=== PATIENT | female | born 1965 | race Caucasian/White ===

== ENCOUNTER 2019-04-15 10:43 | Emergency (ER) | payer OTHER ==
--- NOTE | 2019-04-15 11:11 | ER Document Report ---
ED Medical Screen (RME) - General Mode of Arrival: Ambulatory Information source: Patient TRAVEL OUTSIDE OF THE [place] IN LAST 30 DAYS: No <ATIF RAUSCH - Last Filed: 04/15/19 11:09> <RASHEL MALHOTRA - Last Filed: 04/15/19 14:19> - General Chief Complaint: Loose Stools Stated Complaint: BLACK STOOLS,DIARRHEA,FEVER Time Seen by Provider: 04/15/19 11:04 Primary Care Provider: SCARLET FAIRCHILD MD [COMMUNITY BASED STAFF] - Follow up as needed Notes: 53-year-old female with history of frequent UTIs and IBS presents to the emergency department with severe diarrhea. Reports that she has been on antibiotics for the past 3 months for kidney issues. She reports she started having uncontrolled diarrhea since Friday. 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 Reports that the stool smells awful is dark. No history of C. difficile. Reports she had a fever over the weekend. Reports every time she eats something it goes right through her and she has to run to the restroom. I have greeted and performed a rapid initial assessment of this patient. A comprehensive ED assessment and evaluation of the patient, analysis of test results and completion of the medical decision making process will be conducted by additional ED providers. Dictation of this chart was performed using voice recognition software; therefore, there may be some unintended grammatical errors. (ATIF RAUSCH) - Related Data Allergies/Adverse Reactions: codeine [Codeine] Allergy (Verified 04/15/19 10:50) Penicillins Allergy (Verified 04/15/19 10:50) IV DYE Allergy (Uncoded 04/15/19 13:57) Past Medical History - Social History Chew tobacco use (# tins/day): No Frequency of alcohol use: None Drug Abuse: None - Past Medical History Cardiac Medical History: Reports: Hx Hypercholesterolemia Past Surgical History: Reports: Hx Hysterectomy, Hx Urinary Tract Surgery - bladder sling <ATIF RAUSCH - Last Filed: 04/15/19 11:09> Physical Exam - Vital signs Vitals: Temp Pulse Resp BP Pulse Ox 97.3 F 67 16 124/77 100 04/15/19 10:47 04/15/19 10:47 04/15/19 10:47 04/15/19 10:47 04/15/19 10:47 Course - Laboratory Result Diagrams: 04/15/19 11:30 04/15/19 11:30 <RASHEL MALHOTRA P - Last Filed: 04/15/19 14:19> - Vital Signs Vital signs: Temp Pulse Resp BP Pulse Ox 97.3 F 67 16 124/77 100 04/15/19 10:47 04/15/19 10:47 04/15/19 10:47 04/15/19 10:47 04/15/19 10:47 - Laboratory Laboratory results interpreted by me: 04/15/19 04/15/19 04/15/19 11:30 11:30 13:02 [place] % (Auto) 16.8 H AST 48 H Urine Ketones TRACE H Urine Blood SMALL H Ur Leukocyte Esterase SMALL H Doctor's Discharge <ATIF RAUSCH - Last Filed: 04/15/19 11:09> <RASHEL MALHOTRA P - Last Filed: 04/15/19 14:19> - Discharge Referrals: SCARLET FAIRCHILD MD [COMMUNITY BASED STAFF] - Follow up as needed
[2019-04-15 11:46] LABS: ABSOLUTE EOSINOPHILS # (AUTO) 0.2 10^3/uL (0.0-0.6); ABSOLUTE LYMPHOCYTES (AUTO) 1.5 10^3/uL (0.5-4.7); ABSOLUTE MONOCYTES (AUTO) 0.8 10^3/uL (0.1-1.4); ABSOLUTE NEUT (AUTO) 2.1 10^3/uL (1.7-8.2); BASOPHILS % (AUTO) 0.9 % (0-2); HEMATOCRIT 41.2 % (36.0-47.0); LYMPHOCYTES % (AUTO) 32.2 % (13-45); MEAN CORPUSCULAR HEMOGLOBIN 31.5 pg (27.0-33.4); MEAN CORPUSCULAR HGB CONC 34.1 g/dL (32.0-36.0); MEAN CORPUSCULAR VOLUME 92 fl (80-97); MONOCYTES % (AUTO) 16.8 % (3-13); PLATELET COUNT 266 10^3/uL (150-450); RED BLOOD COUNT 4.46 10^6/uL (3.72-5.28); RED CELL DISTRIBUTION WIDTH 13.9 % (11.5-14.0); SEGMENTED NEUTROPHILS % (AUTO) 46.1 % (42-78); TOTAL CELLS COUNTED % (AUTO) 100 %; WHITE BLOOD COUNT 4.5 10^3/uL (4.0-10.5)
[2019-04-15 12:09] LABS: ALBUMIN 3.9 g/dL (3.5-5.0); ALKALINE PHOSPHATASE 112 U/L (38-126); ANION GAP 9 (5-19); ASPARTATE AMINO TRANSFERASE 48 U/L (14-36); BILIRUBIN,DIRECT 0.2 mg/dL (0.0-0.4); BILIRUBIN,TOTAL 0.4 mg/dL (0.2-1.3); BLOOD UREA NITROGEN 13 mg/dL (7-20); CALCIUM 9.2 mg/dL (8.4-10.2); CARBON DIOXIDE 30 mmol/L (22-30); CHLORIDE 101 mmol/L (98-107); GLUCOSE 97 mg/dL (75-110); POTASSIUM 4.1 mmol/L (3.6-5.0); TOTAL PROTEIN 6.8 g/dL (6.3-8.2)
[2019-04-15 13:21] LABS: APPEARANCE,URINE CLEAR; BILIRUBIN,URINE NEGATIVE (NEGATIVE); COLOR,URINE YELLOW; GLUCOSE, URINE NEGATIVE (NEGATIVE); KETONES,URINE TRACE mg/dL (NEGATIVE); LEUKOCYTE ESTERASE,URINE SMALL (NEGATIVE); NITRITE,URINE NEGATIVE (NEGATIVE); PROTEIN,URINE NEGATIVE (NEGATIVE); URINE SPECIFIC GRAVITY 1.009; UROBILINOGEN,URINE NEGATIVE mg/dL (<2.0)
[2019-04-15] MEDS ORDERED: RINGERS SOLUTION,LACTATED 1,000 ML IV ONE (14:24)
--- NOTE | 2019-04-15 14:24 | ER Document Report ---
ED General - General Chief Complaint: Loose Stools Stated Complaint: BLACK STOOLS,DIARRHEA,FEVER Time Seen by Provider: 04/15/19 11:04 Primary Care Provider: SCARLET FAIRCHILD MD [COMMUNITY BASED STAFF] - Follow up as needed Mode of Arrival: Ambulatory Information source: Patient TRAVEL OUTSIDE OF THE [place] IN LAST 30 DAYS: No - HPI Patient complains to provider of: diarrhea, nasuea and vomiting Onset: Other - since Friday (3 days) Onset/Duration: Gradual Quality of pain: No pain Severity: Moderate Context: 53 year old female arrives via POV with complaints of loose watery stool and nausea with vomiting since last Friday - 6 days. She has a h/o recurrent uti and normally takes prophlactic antibiotics but stopped Friday. She also has IBS and hypercholesterolemia. Fever reportedly over the weekend. No chest pain and no sob. Associated symptoms: Fever Exacerbated by: Denies Relieved by: Denies - Related Data Allergies/Adverse Reactions: codeine [Codeine] Allergy (Verified 04/15/19 10:50) Penicillins Allergy (Verified 04/15/19 10:50) IV DYE Allergy (Uncoded 04/15/19 13:57) Past Medical History - General Information source: Patient - Social History Smoking Status: Never Smoker Chew tobacco use (# tins/day): No Frequency of alcohol use: None Drug Abuse: None Family History: Reviewed & Not Pertinent Patient has suicidal ideation: No Patient has homicidal ideation: No - Past Medical History Cardiac Medical History: Reports: Hx Hypercholesterolemia Neurological Medical History: Reports: Hx Migraine Past Surgical History: Reports: Hx Breast Surgery - breast implants, Hx Hysterectomy, Hx Urinary Tract Surgery - bladder sling Review of Systems - Review of Systems Constitutional: No symptoms reported EENT: No symptoms reported Cardiovascular: No symptoms reported Respiratory: No symptoms reported Gastrointestinal: See HPI, Diarrhea, Nausea, Vomiting Genitourinary: No symptoms reported Female Genitourinary: No symptoms reported Musculoskeletal: No symptoms reported Skin: No symptoms reported Hematologic/Lymphatic: No symptoms reported Neurological/Psychological: No symptoms reported Physical Exam - Vital signs Vitals: Temp Pulse Resp BP Pulse Ox 97.3 F 67 16 124/77 100 04/15/19 10:47 04/15/19 10:47 04/15/19 10:47 04/15/19 10:47 04/15/19 10:47 Interpretation: Normal - General General appearance: Appears well, Alert - HEENT Head: Normocephalic, Atraumatic Eyes: Normal Pupils: PERRL Pharynx: Other - dry mucus membranes - Respiratory Respiratory status: No respiratory distress Chest status: Nontender Breath sounds: Normal Chest palpation: Normal - Cardiovascular Rhythm: Regular Heart sounds: Normal auscultation Murmur: No - Abdominal Inspection: Normal Distension: No distension Bowel sounds: Normal Tenderness: Nontender Organomegaly: No organomegaly - Back Back: Normal, Nontender - Extremities General upper extremity: Normal inspection, Nontender, Normal color, Normal ROM, Normal temperature General lower extremity: Normal inspection, Nontender, Normal color, Normal ROM, Normal temperature, Normal weight bearing. No: Luis's sign - Neurological Neuro grossly intact: Yes Cognition: Normal Orientation: AAOx4 Whit Coma Scale Eye Opening: Spontaneous Whit Coma Scale Verbal: Oriented Whit Coma Scale Motor: Obeys Commands Whit Coma Scale Total: 15 Speech: Normal Motor strength normal: LUE, RUE, LLE, RLE Sensory: Normal - Psychological Associated symptoms: Normal affect, Normal mood - Skin Skin Temperature: Warm Skin Moisture: Dry Skin Color: Normal Course - Re-evaluation Re-evalutation: 04/15/19 15:58 MDM 53 year old feels a bit better after IVF. No stool here. ? IBS vs infectious colitis. She understands follow up. - Vital Signs Vital signs: Temp Pulse Resp BP Pulse Ox 97.9 F 65 18 120/67 100 04/15/19 14:49 04/15/19 14:49 04/15/19 14:49 04/15/19 14:49 04/15/19 14:49 - Laboratory Result Diagrams: 04/15/19 11:30 04/15/19 11:30 Laboratory results interpreted by me: 04/15/19 04/15/19 04/15/19 11:30 11:30 13:02 [place] % (Auto) 16.8 H AST 48 H Urine Ketones TRACE H Urine Blood SMALL H Ur Leukocyte Esterase SMALL H Discharge - Discharge Clinical Impression: Diarrhea Qualifiers: Diarrhea type: unspecified type Qualified Code(s): R19.7 - Diarrhea, unspe cified Condition: Good Disposition: HOME, SELF-CARE Instructions: Diarrhea, Nonspecific ([facility]), Irritable Bowel Syndrome ([facility]) Additional Instructions: Rest, fluids, please return here for any problems or any concerns. Take your regular medicine as directed. Forms: Return to Work Referrals: SCARLET FAIRCHILD MD [COMMUNITY BASED STAFF] - Follow up as needed
[2019-04-15 16:27] VITALS: BP 130/81
== END 2019-04-15 16:27 | disposition home or self-care (01) ==
LOC: ER 10:43
DX: R19.7 Diarrhea, unspecified (principal); R11.2 Nausea with vomiting, unspecified; Z87.440 Personal history of urinary (tract) infections; Z88.5 Allergy status to narcotic agent; Z88.0 Allergy status to penicillin; Z91.041 Radiographic dye allergy status
CPT/HCPCS: 99284; 96360; 36415; 87086; 83690; 83735; 85025; 80053; 81001; J7120